=== PATIENT | female | born 1995 | race Caucasian/White ===

== ENCOUNTER → 2018-12-11 | Outpatient (CLI) | payer BC ==
--- NOTE | 2018-12-11 13:42 | REP ---
Clinical: IUD positioning . Technique: Transabdominal pelvic ultrasound followed by transvaginal examination for better evaluation of the endometrium and adnexa with color Doppler evaluation of the ovaries. Findings: Bladder is empty Anteverted uterus measures 7.2 x 2.4 x 4.0 cm with left posterior intramural fibroid measuring 1.3 cm maximal diameter . The endometrial complex measures 2.0 mm thickness. No discrete uterine or endometrial abnormalities are appreciated. IUD identified in satisfactory position. Bilateral ovaries are normal in appearance and vascularity without evidence for torsion. Right ovary measures 2.7 x 1.7 x 2.0 cm ; R I = 0.57 . Left ovary measures 3.5 x 1.8 x 2.7 cm ; R I = 0.51 . No pelvic fluid or adnexal mass lesion . Impression: 1. Left posterior intramural fibroid measures 1.3 cm maximal diameter. 2. IUD in satisfactory position. 3. Normal bilateral ovaries without torsion. Electronically Signed by Mike Garner MD 12/11/2018 01:33 P
== END ==
LOC: M RAD 10:17
PROVIDERS: ATTEND Physician Assistant
DX: Z30.431 Encounter for routine checking of intrauterine contraceptive device (principal); D25.9 Leiomyoma of uterus, unspecified

== ENCOUNTER → 2019-11-05 | Outpatient (REF) | payer BC ==
[2019-11-05 13:12] LABS: HEMATOCRIT 36.5 % (36.0-47.0); HEMOGLOBIN 12.3 g/dl (12.0-15.5); MEAN CORPUSCULAR HEMOGLOBIN 29.1 pg (27.0-33.0); MEAN CORPUSCULAR HGB CONC 33.7 g/dl (32.0-36.5); MEAN CORPUSCULAR VOLUME 86.5 fl (80.0-96.0); PLATELET COUNT, AUTOMATED 295 10^3/uL (150-450); RED BLOOD COUNT 4.22 10^6/uL (4.00-5.40); WHITE BLOOD COUNT 8.4 10^3/uL (4.0-10.0)
[2019-11-05 14:08] LABS: HCG, SERUM QUANTITATIVE 149340 MIU/ML; HEPATITIS B SURFACE ANTIGEN NEGATIVE (NEGATIVE); HEPATITIS C VIRUS ABY INDEX 0.1 INDEX (<0.8); HIV 1&2 SCREEN CENTAUR NEGATIVE (NEGATIVE); RUBELLA IgG QUALITATIVE IMMUNE (IMMUNE)
== END ==
LOC: M LAB REF 12:18
PROVIDERS: ATTEND Obstetrics & Gynecology
DX: Z32.01 Encounter for pregnancy test, result positive (principal)

== ENCOUNTER → 2020-01-21 | Outpatient (CLI) | payer BC ==
--- NOTE | 2020-01-21 11:32 | REP ---
OB ULTRASOUND: Real-time sonographic evaluation of the gravid uterus performed. There is a single living intrauterine gestation. The estimated gestational age is 23 weeks 0 days. EDC 06/09/2020. Today's measurements indicate appropriate growth. Biometry and Growth: BPD 47 mm = 20 weeks 0 days, 51st percentile HC 174 mm = 19 weeks 6 days, 47th percentile AC 148 mm = 20 weeks 1 day, 52nd percentile FL 33 mm = 20 weeks 2 days, 56th percentile HC/AC ratio 1.17 with in normal range 1.06 to 1.24. Estimated weight 334 grams 52nd percentile. SEEN/GROSSLY UNREMARKABLE Lateral ventricles Yes Posterior fossa Yes Upper lip Yes Four-chamber heart No LVOT No RVOT No Stomach Yes Cord insertion Yes Three vessel cord Yes Kidneys Yes Bladder Yes Spine Yes Cervical length: Closed and measures 3.9 cm in length. heart rate: 158 beats per minute. position: Variable Placenta: Posterior and grade 1 with no previa or abruption. Amniotic fluid: Within normal limits. There appears to be a posterior fibroid 1.5 cm in diameter.
== END ==
LOC: M WHC 08:45
PROVIDERS: ATTEND Obstetrics & Gynecology
DX: Z34.02 Encounter for supervision of normal first pregnancy, second trimester (principal); Z3A.23 23 weeks gestation of pregnancy

== ENCOUNTER → 2020-02-14 | Outpatient (CLI) | payer BC ==
--- NOTE | 2020-03-09 17:58 | REP ---
OBSTETRIC ULTRASOUND CLINICAL: Anatomical follow-up. COMPARISON: 01/21/2020. TECHNIQUE: Transabdominal obstetric ultrasound with color Doppler evaluation. FINDINGS: Ultrasound examination demonstrates a single live intrauterine in cephalic presentation. motion was identified by the technologist. heart rate equals 153 beats per minute. Placenta noted posteriorly, grade 0, and without placenta previa or abruption. Cervix measures 3.1 cm in length and appears closed. Gestational age by current biometrical measures 23 weeks 4 days with estimated date of delivery 06/08/2020. heart rate equals 153 beats per minute. Estimated weight 592 grams (41st percentile). Amniotic fluid volume is normal. Anatomical assessment demonstrates normal spine, stomach, kidney/bladder, heart/ventricular outflow tracts, three-vessel cord/cord insertion, and facial features. IMPRESSION: Single live intrauterine in cephalic presentation demonstrating appropriate estimated weight and growth. In conjunction with prior examination, anatomical assessment is complete and normal. [facility]
== END ==
LOC: M WHC 05:47
PROVIDERS: ATTEND Obstetrics & Gynecology
DX: Z34.02 Encounter for supervision of normal first pregnancy, second trimester (principal); Z3A.23 23 weeks gestation of pregnancy

== ENCOUNTER → 2020-04-13 | Outpatient (CLI) | payer BC ==
--- NOTE | 2020-04-18 11:46 | REP ---
OBSTETRIC SONOGRAPHY HISTORY: Supervision of for dating and growth. FINDINGS: Scanning through the gravid uterus demonstrates a single living intrauterine gestation in a cephalic lie. heart rate is recorded at 155 beats per minute. Posterior grade 1 placenta is seen without evidence of previa. Amniotic fluid index (JUSTINO) is normal at 11.8 cm. Closed cervical length is 3.5 cm. This is viewed and measured transabdominally. Appropriate interval growth. BIOMETRY CHART: BPD 8.0 cm 32 weeks 1 day Head circumference 29.3 cm 32 weeks 2 days Abdominal circumference 27.9 cm 32 weeks 0 days Femur length 6.3 cm 32 weeks 4 days Humeral length 5.6 cm 32 weeks 4 days AC/HC ratio 1.05 Normal Cephalic index 0.76 Normal Estimated weight 1925 grams, 4 pounds 3 ounces, 50th percentile for 31 weeks 6 days. IMPRESSION: Single living intrauterine gestation at 32 weeks 2 days by todays composite sonographic criteria. Estimated date of delivery (NANCI) by todays sonography 06/06/2020. MTDD
== END ==
LOC: M WHC 10:27
PROVIDERS: ATTEND Advanced Practice Midwife
DX: Z34.03 Encounter for supervision of normal first pregnancy, third trimester (principal)

== ENCOUNTER → 2020-05-10 | Outpatient (REF) | payer BC | LOC: M LAB REF 11:24 | PROVIDERS: ATTEND Advanced Practice Midwife | DX: Z34.83 Encounter for supervision of other normal pregnancy, third trimester (principal); Z36.85 Encounter for antenatal screening for Streptococcus B ==

== ENCOUNTER → 2020-07-20 | Outpatient (REF) | payer BC, MEDICAID ==
[2020-07-20 17:19] LABS: APPEARANCE, URINE CLOUDY (CLEAR); BACTERIA, URINE AUTO NEGATIVE (NEGATIVE); BILIRUBIN, URINE AUTO NEGATIVE (NEGATIVE); BLOOD, URINE BLOOD NEGATIVE (NEGATIVE); COLOR, URINE YELLOW (YELLOW); GLUCOSE, URINE (UA) AUTO NEGATIVE (NEGATIVE); KETONE, URINE AUTO NEGATIVE (NEGATIVE); LEUKOCYTE ESTERASE, URINE AUTO NEGATIVE (NEGATIVE); MUCUS, URINE SMALL (NEGATIVE); NITRITE, URINE AUTO NEGATIVE (NEGATIVE); PROTEIN, URINE AUTO NEGATIVE (NEGATIVE); RBC, URINE AUTO 0 /HPF (0-3); SPECIFIC GRAVITY URINE AUTO 1.023 (1.002-1.035); SQUAMOUS EPITHELIAL CELL UR AU 1 /HPF (0-6); UROBILINOGEN, URINE AUTO 0.2 mg/dL (0.0-2.0); WBC, URINE AUTO 1 /HPF (0-3)
[2020-07-20 17:19] LABS: BASO # 0.1 10^3/uL (0.0-0.2); BASO % 1.2 % (0.0-1.0); EOS # 0.4 10^3/uL (0.0-0.5); EOS % 6.1 % (0.0-3.0); HEMATOCRIT 40.8 % (36.0-47.0); LYMPH # 2.8 10^3/uL (1.5-5.0); LYMPH % 42.2 % (24.0-44.0); MEAN CORPUSCULAR HEMOGLOBIN 27.7 pg (27.0-33.0); MEAN CORPUSCULAR HGB CONC 31.9 g/dl (32.0-36.5); MONO # 0.4 10^3/uL (0.0-0.8); MONO % 6.3 % (0.0-5.0); NEUTROPHILS # 2.9 10^3/uL (1.5-8.5); NEUTROPHILS % 43.7 % (36.0-66.0); PLATELET COUNT, AUTOMATED 281 10^3/uL (150-450); RED BLOOD COUNT 4.69 10^6/uL (4.00-5.40); WHITE BLOOD COUNT 6.5 10^3/uL (4.0-10.0)
[2020-07-20 17:37] LABS: ALBUMIN 3.9 GM/DL (3.2-5.2); ALT/SGPT 23 U/L (12-78); BILIRUBIN,TOTAL 0.2 MG/DL (0.2-1.0); BLOOD UREA NITROGEN 14 MG/DL (7-18); CARBON DIOXIDE LEVEL 27 MEQ/L (21-32); CHLORIDE LEVEL 105 MEQ/L (98-107); CHOLESTEROL LEVEL 277 MG/DL (<200); CHOLESTEROL RISK RATIO 5.893 (<5); CREATININE FOR GFR 0.65 MG/DL (0.55-1.30); GLOMERULAR FILTRATION RATE > 60.0 (>60); GLUCOSE, FASTING 83 MG/DL (70-100); HDL CHOLESTEROL 47 MG/DL (>40); LDL CHOLESTEROL 198 MG/DL (<100); NON-HDL-C 230 MG/DL; POTASSIUM SERUM 4.5 MEQ/L (3.5-5.1); SODIUM LEVEL 138 MEQ/L (136-145); TOTAL PROTEIN 6.9 GM/DL (6.4-8.2); TRIGLYCERIDES LEVEL 158 MG/DL (<150)
[2020-07-20 19:32] LABS: HEMOGLOBIN A1c 5.1 %
== END ==
LOC: M LAB REF 15:59
PROVIDERS: ATTEND Physician Assistant
DX: Z86.32 Personal history of gestational diabetes (principal); O10.03 Pre-existing essential hypertension complicating the puerperium; Z13.228 Encounter for screening for other metabolic disorders; Z13.220 Encounter for screening for lipoid disorders

== ENCOUNTER → 2020-08-30 | Outpatient (REF) | payer BC, MEDICAID ==
[2020-08-30 18:49] LABS: APPEARANCE, URINE CLOUDY (CLEAR); BACTERIA, URINE AUTO 2+ (NEGATIVE); BILIRUBIN, URINE AUTO NEGATIVE (NEGATIVE); BLOOD, URINE BLOOD 2+ (NEGATIVE); COLOR, URINE AMBER (YELLOW); GLUCOSE, URINE (UA) AUTO NEGATIVE (NEGATIVE); KETONE, URINE AUTO NEGATIVE (NEGATIVE); LEUKOCYTE ESTERASE, URINE AUTO 2+ (NEGATIVE); MUCUS, URINE SMALL (NEGATIVE); NITRITE, URINE AUTO POSITIVE (NEGATIVE); PROTEIN, URINE AUTO 3+ mg/dL (NEGATIVE); RBC, URINE AUTO 55 /HPF (0-3); SPECIFIC GRAVITY URINE AUTO 1.013 (1.002-1.035); SQUAMOUS EPITHELIAL CELL UR AU 0 /HPF (0-6); UROBILINOGEN, URINE AUTO 0.2 mg/dL (0.0-2.0); WBC, URINE AUTO TNTC /HPF (0-3)
== END ==
LOC: M LAB REF 16:22
PROVIDERS: ATTEND Physician Assistant Medical
DX: R30.0 Dysuria (principal)

== ENCOUNTER → 2020-10-06 | Outpatient (REF) | payer BC, MEDICAID ==
[2020-10-06 16:12] LABS: BASO # 0.1 10^3/uL (0.0-0.2); BASO % 0.9 % (0.0-1.0); EOS # 0.4 10^3/uL (0.0-0.5); EOS % 3.6 % (0.0-3.0); HEMATOCRIT 38.2 % (36.0-47.0); HEMOGLOBIN 12.8 g/dl (12.0-15.5); LYMPH # 2.5 10^3/uL (1.5-5.0); LYMPH % 26.1 % (24.0-44.0); MEAN CORPUSCULAR HEMOGLOBIN 29.1 pg (27.0-33.0); MEAN CORPUSCULAR HGB CONC 33.5 g/dl (32.0-36.5); MEAN CORPUSCULAR VOLUME 86.8 fl (80.0-96.0); MONO # 0.8 10^3/uL (0.0-0.8); MONO % 8.5 % (2.0-8.0); NEUTROPHILS # 5.9 10^3/uL (1.5-8.5); NEUTROPHILS % 60.4 % (36.0-66.0); PLATELET COUNT, AUTOMATED 350 10^3/uL (150-450); WHITE BLOOD COUNT 9.7 10^3/uL (4.0-10.0)
[2020-10-06 16:24] LABS: ALBUMIN 4.1 GM/DL (3.2-5.2); ALT/SGPT 21 U/L (12-78); BILIRUBIN,TOTAL 0.2 MG/DL (0.2-1.0); BLOOD UREA NITROGEN 11 MG/DL (7-18); CALCIUM LEVEL 9.4 MG/DL (8.5-10.1); CARBON DIOXIDE LEVEL 26 MEQ/L (21-32); CHLORIDE LEVEL 106 MEQ/L (98-107); FREE T4 1.14 NG/DL (0.76-1.46); GLOMERULAR FILTRATION RATE > 60.0 (>60); GLUCOSE, FASTING 98 MG/DL (70-100); POTASSIUM SERUM 3.9 MEQ/L (3.5-5.1); SODIUM LEVEL 140 MEQ/L (136-145); TOTAL 25(OH) VITAMIN D 30.4 NG/ML (30.0-100.0); TOTAL PROTEIN 7.7 GM/DL (6.4-8.2)
== END ==
LOC: M LAB REF 15:37
PROVIDERS: ATTEND Physician Assistant
DX: F41.1 Generalized anxiety disorder (principal); E66.9 Obesity, unspecified; E78.5 Hyperlipidemia, unspecified

== ENCOUNTER → 2020-11-16 | Outpatient (CLI) | payer BC, MEDICAID ==
--- NOTE | 2020-11-17 09:17 | REP ---
INDICATION: SWELLING/MASS/LUMP OF NECK COMPARISON: None. TECHNIQUE: Artis scale and color evaluation of the thyroid gland using the linear high frequency transducer. FINDINGS: The thyroid gland is normal in contour, shape, size, and echogenicity. No nodule/mass or cystic abnormalities are appreciated. Right thyroid lobe measures 4.8 x 1.5 x 1.5 cm. Isthmus measures 2.9 mm in width. Left thyroid lobe measures 3.8 x 1.7 x 1.1 cm. IMPRESSION: Normal thyroid ultrasound. <Electronically signed by Mike Garner > 11/17/20 0913
== END ==
LOC: M RAD 14:10
PROVIDERS: ATTEND Physician Assistant
DX: R22.1 Localized swelling, mass and lump, neck (principal)

== ENCOUNTER → 2021-04-10 | Outpatient (REF) | payer BC, MEDICAID | LOC: M SFHCWAGY 17:57 | PROVIDERS: ATTEND Advanced Practice Midwife | DX: Z12.4 Encounter for screening for malignant neoplasm of cervix (principal) ==

== ENCOUNTER → 2022-03-07 | Outpatient (REF) | payer MEDICARE | LOC: M PLALAB 16:38 | PROVIDERS: ATTEND Advanced Practice Midwife | DX: Z53.9 Procedure and treatment not carried out, unspecified reason (principal) ==

== ENCOUNTER → 2022-03-07 | Outpatient (CLI) | payer MEDICARE, OTHER | LOC: M LAB 17:08 | PROVIDERS: ATTEND Advanced Practice Midwife | DX: O20.0 Threatened abortion (principal) ==

== ENCOUNTER → 2022-03-09 | Outpatient (CLI) | payer OTHER | LOC: M LAB 08:07 | PROVIDERS: ATTEND Advanced Practice Midwife | DX: O20.0 Threatened abortion (principal); Z3A.00 Weeks of gestation of pregnancy not specified ==

== ENCOUNTER → 2022-03-11 | Outpatient (CLI) | payer OTHER | LOC: M WHC 11:38 | PROVIDERS: ATTEND Advanced Practice Midwife | DX: O20.0 Threatened abortion (principal); Z3A.00 Weeks of gestation of pregnancy not specified ==

== ENCOUNTER → 2022-03-13 | Outpatient (CLI) | payer OTHER | LOC: M LAB 14:36 | PROVIDERS: ATTEND Advanced Practice Midwife | DX: O20.0 Threatened abortion (principal); Z3A.00 Weeks of gestation of pregnancy not specified ==

== ENCOUNTER → 2022-03-15 | Outpatient (CLI) | payer OTHER | LOC: M LAB 15:39 | PROVIDERS: ATTEND Advanced Practice Midwife | DX: O20.0 Threatened abortion (principal); Z3A.00 Weeks of gestation of pregnancy not specified ==

== ENCOUNTER → 2022-04-19 | Outpatient (CLI) | payer MEDICARE, OTHER ==
[2022-04-19 09:13] LABS: HEMATOCRIT 40.2 % (36.0-47.0); HEMOGLOBIN 13.2 g/dl (12.0-15.5); MEAN CORPUSCULAR HEMOGLOBIN 29.5 pg (27.0-33.0); MEAN CORPUSCULAR HGB CONC 32.8 g/dl (32.0-36.5); MEAN CORPUSCULAR VOLUME 89.7 fl (80.0-96.0); PLATELET COUNT, AUTOMATED 315 10^3/uL (150-450); RED BLOOD COUNT 4.48 10^6/uL (4.00-5.40); WHITE BLOOD COUNT 8.8 10^3/uL (4.0-10.0)
[2022-04-19 09:51] LABS: ALT/SGPT 17 U/L (12-78); BILIRUBIN,TOTAL 0.2 MG/DL (0.2-1.0); CREATININE FOR GFR 0.51 MG/DL (0.55-1.30); GLOMERULAR FILTRATION RATE > 60.0 (>60); GLUCOSE CHALLENGE TEST 1 HOUR 90 MG/DL (LESS THAN 140); LDH LACTATE DEHYDROGENASE 174 U/L (84-246); URIC ACID 2.3 MG/DL (2.6-6.0)
[2022-04-19 11:25] LABS: HIV 1&2 SCREEN CENTAUR NEGATIVE (NEGATIVE)
[2022-04-19 11:28] LABS: GC DNA AMPLIFICATION NEGATIVE (NEGATIVE)
[2022-04-19 13:37] LABS: HEPATITIS C VIRUS ABY INDEX < 0.0 INDEX (<0.8)
== END ==
LOC: M LAB 07:04
PROVIDERS: ATTEND Advanced Practice Midwife
DX: O09.291 Supervision of pregnancy with other poor reproductive or obstetric history, first trimester (principal); Z87.19 Personal history of other diseases of the digestive system; Z3A.00 Weeks of gestation of pregnancy not specified

== ENCOUNTER 2022-05-01 21:06 | Emergency (ER) | payer MEDICARE, OTHER ==
[~2022-05-01] VITALS: Ht 162.6 cm; Wt 69.8 kg
[2022-05-01 21:09] VITALS: BP 137/87
[2022-05-01] MEDS ORDERED: LEVOTAB10 (21:18)
[2022-05-01] MEDS ORDERED: MONT10TA97 (21:18)
== END 2022-05-01 23:33 | disposition left against medical advice (07) ==
LOC: M ED 21:06
DX: Z53.21 Procedure and treatment not carried out due to patient leaving prior to being seen by health care provider (principal)

== ENCOUNTER → 2022-05-31 | Outpatient (REF) | payer MEDICARE ==
[~2022-05-31] MED LIST: LEVOTAB10; MONT10TA97
[2022-05-31 15:04] LABS: CREATININE,RANDOM URINE 197.4 MG/DL; TOTAL PROTEIN,RANDOM URINE 24.5 MG/DL (0.0-14.0)
== END ==
LOC: M PLALAB 08:17
PROVIDERS: ATTEND Advanced Practice Midwife
DX: O09.292 Supervision of pregnancy with other poor reproductive or obstetric history, second trimester (principal)

== ENCOUNTER → 2022-06-21 | Outpatient (CLI) | payer MEDICARE, OTHER | LOC: M WHC 12:08 | PROVIDERS: ATTEND Advanced Practice Midwife | DX: O09.292 Supervision of pregnancy with other poor reproductive or obstetric history, second trimester (principal); Z87.19 Personal history of other diseases of the digestive system; Z3A.20 20 weeks gestation of pregnancy ==

== ENCOUNTER 2022-07-31 01:50 | Outpatient (CLI) | payer MEDICARE, OTHER ==
[~2022-07-31] VITALS: Ht 162.6 cm; Wt 76.3 kg
[2022-07-31 02:05] VITALS: BP 119/65
[2022-07-31] MEDS ORDERED: ECOT81TA5 PO (02:07)
[2022-07-31] MEDS ORDERED: PRENTAB9 PO (02:07)
[2022-07-31] MEDS ORDERED: LR 1,000 ML IV ONE (02:20)
[2022-07-31] MEDS ORDERED: PROMETHAZINE 25MG/ML 1ML VIAL IV ONE (02:20)
[2022-07-31 03:55] VITALS: BP 111/64
[2022-07-31] MEDS ORDERED: LR 1,000 ML IV SCH (04:30)
[2022-07-31] MEDS ORDERED: ONDA4TAB6 PO (04:54)
== END 2022-07-31 06:40 | disposition home or self-care (01) ==
LOC: M LDO 01:50
PROVIDERS: ATTEND Obstetrics & Gynecology
DX: O21.8 Other vomiting complicating pregnancy (principal); Z3A.25 25 weeks gestation of pregnancy
CPT/HCPCS: 59025; 81002; 96374; G0378; G0463; J2550

== ENCOUNTER → 2022-08-02 | Outpatient (CLI) | payer MEDICARE, OTHER ==
[~2022-08-02] MED LIST changes: +ECOT81TA5 PO; +ONDA4TAB6 PO; +PRENTAB9 PO
[2022-08-02 10:47] LABS: HEMATOCRIT 31.9 % (36.0-47.0); HEMOGLOBIN 10.6 g/dl (12.0-15.5); MEAN CORPUSCULAR HGB CONC 33.2 g/dl (32.0-36.5); MEAN CORPUSCULAR VOLUME 87.2 fl (80.0-96.0); PLATELET COUNT, AUTOMATED 283 10^3/uL (150-450); RED BLOOD COUNT 3.66 10^6/uL (4.00-5.40); WHITE BLOOD COUNT 5.7 10^3/uL (4.0-10.0)
[2022-08-02 12:57] LABS: GC DNA AMPLIFICATION NEGATIVE (NEGATIVE)
== END ==
LOC: M PLALAB 07:56
PROVIDERS: ATTEND Advanced Practice Midwife
DX: Z34.92 Encounter for supervision of normal pregnancy, unspecified, second trimester (principal)

== ENCOUNTER → 2022-08-15 | Outpatient (CLI) | payer OTHER | LOC: M LAB 08:14 | PROVIDERS: ATTEND Advanced Practice Midwife | DX: O99.810 Abnormal glucose complicating pregnancy (principal) ==

== ENCOUNTER → 2022-08-29 | Outpatient (REF) | payer MEDICARE | LOC: M PLALAB 09:27 | PROVIDERS: ATTEND Advanced Practice Midwife | DX: N93.0 Postcoital and contact bleeding (principal) ==

== ENCOUNTER → 2022-10-10 | Outpatient (REF) | payer OTHER | LOC: M SFHCWAGY 13:01 | PROVIDERS: ATTEND Advanced Practice Midwife | DX: O24.410 Gestational diabetes mellitus in pregnancy, diet controlled (principal) ==

== ENCOUNTER → 2022-10-10 | Outpatient (CLI) | payer OTHER | LOC: M WHC 11:25 | PROVIDERS: ATTEND Advanced Practice Midwife | DX: O24.410 Gestational diabetes mellitus in pregnancy, diet controlled (principal) ==

== ENCOUNTER 2022-10-17 19:11 | Inpatient (IN) | payer MEDICARE, OTHER ==
[~2022-10-17] VITALS: Ht 160 cm; Wt 86.0 kg
[2022-10-17 19:37] VITALS: BP 156/89
[2022-10-17] MEDS ORDERED: NS 1,000 ML IV ONE (19:50)
[2022-10-17] MEDS ORDERED: ACETAMINOPHEN 500 MG TAB PO ONE (19:50)
[2022-10-17 20:13] LABS: BASO % 0.2 % (0.0-1.0); EOS % 0.1 % (0.0-3.0); HEMATOCRIT 34.3 % (36.0-47.0); HEMOGLOBIN 11.4 g/dl (12.0-15.5); LYMPH # 0.5 10^3/uL (1.5-5.0); LYMPH % 2.9 % (24.0-44.0); MEAN CORPUSCULAR HEMOGLOBIN 27.3 pg (27.0-33.0); MEAN CORPUSCULAR HGB CONC 33.2 g/dl (32.0-36.5); MEAN CORPUSCULAR VOLUME 82.3 fl (80.0-96.0); MONO # 0.8 10^3/uL (0.0-0.8); MONO % 4.4 % (2.0-8.0); NEUTROPHILS % 91.8 % (36.0-66.0); PLATELET COUNT, AUTOMATED 170 10^3/uL (150-450); RED BLOOD COUNT 4.17 10^6/uL (4.00-5.40); WHITE BLOOD COUNT 17.4 10^3/uL (4.0-10.0)
[2022-10-17 20:18] VITALS: BP 129/68
[2022-10-17 20:39] LABS: ALBUMIN 2.5 G/DL (3.2-5.2); ALKALINE PHOSPHATASE 188 U/L (46-116); ALT/SGPT 13 U/L (7.0-40); AST/SGOT < 8 U/L (<34); BILIRUBIN,TOTAL 0.5 MG/DL (0.3-1.2); BLOOD UREA NITROGEN 9 MG/DL (9-23); CALCIUM LEVEL 7.7 MG/DL (8.5-10.1); CARBON DIOXIDE LEVEL 20 MMOL/L (20-31); CHLORIDE LEVEL 104 MMOL/L (98-107); CREATININE FOR GFR 0.57 MG/DL (0.55-1.30); GLOMERULAR FILTRATION RATE > 60.0 (>60); GLUCOSE, FASTING 88 MG/DL (60-100); POTASSIUM SERUM 3.7 MMOL/L (3.5-5.1); SODIUM LEVEL 135 MMOL/L (136-145); TOTAL PROTEIN 5.7 G/DL (5.7-8.2)
[2022-10-17 20:51] VITALS: BP 136/72
[2022-10-17] MEDS ORDERED: NS 1,000 ML IV SCH (21:10)
[2022-10-17 21:27] VITALS: BP 142/73
[2022-10-17 21:59] LABS: APPEARANCE, URINE CLOUDY (CLEAR); BACTERIA, URINE AUTO NEGATIVE (NEGATIVE); BILIRUBIN, URINE AUTO NEGATIVE (NEGATIVE); BLOOD, URINE BLOOD NEGATIVE (NEGATIVE); COLOR, URINE AMBER (YELLOW); GLUCOSE, URINE (UA) AUTO NEGATIVE (NEGATIVE); KETONE, URINE AUTO 2+ mg/dL (NEGATIVE); LEUKOCYTE ESTERASE, URINE AUTO 2+ (NEGATIVE); MUCUS, URINE SMALL (NEGATIVE); NITRITE, URINE AUTO NEGATIVE (NEGATIVE); PROTEIN, URINE AUTO 2+ mg/dL (NEGATIVE); RBC, URINE AUTO 2 /HPF (0-3); SPECIFIC GRAVITY URINE AUTO 1.028 (1.002-1.035); SQUAMOUS EPITHELIAL CELL UR AU 16 /HPF (0-6); UROBILINOGEN, URINE AUTO 0.2 mg/dL (0.0-2.0); WBC, URINE AUTO 54 /HPF (0-3)
[2022-10-17] MEDS ORDERED: CALCIUM CARBONATE 500 MG CHEW U/D PO ONE (22:00)
[2022-10-17 22:32] VITALS: BP 135/80
[2022-10-17] MEDS: cefTRIAXone SOD 1 GM in D5W MINI-BAG PLUS 50 ML IV SCH (23:02)
[2022-10-17 23:31] VITALS: BP 123/66
[2022-10-18] VITALS (12 sets, daily range): BP systolic 104–134; BP diastolic 57–78
[2022-10-18] MEDS: VANCOMYCIN HCL 1,000 MG, VIAL MATE ADAPTER 1 EACH in NS 250 ML IV SCH ×3 (00:11→15:52)
[2022-10-18] MEDS ORDERED: VANCOMYCIN HCL 1,000 MG, VIAL MATE ADAPTER 1 EACH in NS 250 ML IV ONE (01:00)
[2022-10-18] MEDS: ACETAMINOPHEN 500 MG TAB PO PRN ×4 (01:38→22:15)
[2022-10-18] MEDS: LR 1,000 ML IV SCH ×3 (01:41→18:19)
[2022-10-18] MEDS ORDERED: miSOPROStol 50MCG 1/2 TABLET XX ONE (06:40)
[2022-10-18 09:46] LABS: BLOOD UREA NITROGEN 7 MG/DL (9-23); CALCIUM LEVEL 7.4 MG/DL (8.5-10.1); CARBON DIOXIDE LEVEL 18 MMOL/L (20-31); CHLORIDE LEVEL 105 MMOL/L (98-107); CREATININE FOR GFR 0.57 MG/DL (0.55-1.30); GLOMERULAR FILTRATION RATE > 60.0 (>60); GLUCOSE, FASTING 76 MG/DL (60-100); POTASSIUM SERUM 3.7 MMOL/L (3.5-5.1); SODIUM LEVEL 135 MMOL/L (136-145)
[2022-10-18] MEDS ORDERED: MONT-5 PO (10:10)
[2022-10-18] MEDS ORDERED: TUMS500C PO (10:10)
[2022-10-18] MEDS ORDERED: ASPI81CH33 PO (10:10)
[2022-10-18] MEDS ORDERED: ACET-897 PO (10:10)
[2022-10-18] MEDS ORDERED: LEVOTAB10 PO (10:13)
[2022-10-18 15:34] LABS: BASO % 0.2 % (0.0-1.0); EOS % 0.1 % (0.0-3.0); HEMATOCRIT 31.2 % (36.0-47.0); HEMOGLOBIN 10.2 g/dl (12.0-15.5); LYMPH # 0.9 10^3/uL (1.5-5.0); LYMPH % 4.6 % (24.0-44.0); MEAN CORPUSCULAR HEMOGLOBIN 27.6 pg (27.0-33.0); MEAN CORPUSCULAR HGB CONC 32.7 g/dl (32.0-36.5); MEAN CORPUSCULAR VOLUME 84.6 fl (80.0-96.0); MONO # 0.5 10^3/uL (0.0-0.8); MONO % 2.9 % (2.0-8.0); NEUTROPHILS # 16.7 10^3/uL (1.5-8.5); NEUTROPHILS % 90.6 % (36.0-66.0); PLATELET COUNT, AUTOMATED 156 10^3/uL (150-450); RED BLOOD COUNT 3.69 10^6/uL (4.00-5.40); WHITE BLOOD COUNT 18.4 10^3/uL (4.0-10.0)
[2022-10-18] MEDS ORDERED: CALCIUM CARBONATE 500 MG CHEW U/D PO PRN (19:05)
[2022-10-18] MEDS: cefTRIAXone SOD 1 GM in D5W MINI-BAG PLUS 50 ML IV SCH (23:04)
[2022-10-19] VITALS (38 sets, daily range): BP systolic 107–194; BP diastolic 57–96
[2022-10-19] MEDS: VANCOMYCIN HCL 1,000 MG, VIAL MATE ADAPTER 1 EACH in NS 250 ML IV SCH ×3 (00:03→16:00)
[2022-10-19] MEDS: miSOPROStol 50MCG 1/2 TABLET PO SCH ×2 (09:09→13:24)
[2022-10-19] MEDS ORDERED: EPIDURAL/PCA KEYS XX PRN (15:55)
[2022-10-19] MEDS ORDERED: ePHEDrine SULFATE 25 MG/5 ML(5MG/ML) SYRINGE IVP PRN (15:55)
[2022-10-19] MEDS ORDERED: diphenhydrAMINE 50MG/ML VIAL IV PRN (15:55)
[2022-10-19] MEDS ORDERED: LR 500 ML IV PRN (15:55)
[2022-10-19] MEDS ORDERED: NALOXONE INJ 0.4MG/1ML VIAL IV PRN (15:55)
[2022-10-19] MEDS ORDERED: ONDANSETRON 4MG 2ML VIAL IV PRN ×2 (15:55→23:00)
[2022-10-19] MEDS: FENTANYL/ROPIVACAINE/NACL BAG 100 ML EPIDURAL SCH (16:36)
[2022-10-19] MEDS ORDERED: VANCOMYCIN HCL 750 MG, VIAL MATE ADAPTER 1 EACH in D5W 250 ML IV SCH (17:00)
[2022-10-19] MEDS ORDERED: OXYTOCIN DRIP 30 UNITS in IV 1 EA IV SCH ×2 (18:00→23:00)
[2022-10-19] MEDS ORDERED: VANCOMYCIN HCL 500 MG in D5W MINI-BAG PLUS 100 ML IV SCH (18:00)
[2022-10-19] MEDS ORDERED: VANCOMYCIN HCL 500 MG in D5W MINI-BAG PLUS 100 ML IV ONE (18:30)
[2022-10-19] MEDS ORDERED: DIBUCAINE 1% OINTMENT 30GM TOP PRN (23:00)
[2022-10-19] MEDS ORDERED: RHOGAM 300MCG (1500IU) INJ IM SCH (23:00)
[2022-10-19] MEDS ORDERED: IBUPROFEN 600MG TAB PO PRN (23:00)
[2022-10-19] MEDS: LR 1,000 ML IV SCH (23:00)
[2022-10-19] MEDS ORDERED: DOCUSATE SODIUM 100MG CAPSULE PO PRN (23:00)
[2022-10-19] MEDS ORDERED: ACETAMINOPHEN TAB 650MG DOSE (2X325MG) PO PRN (23:00)
[2022-10-19] MEDS ORDERED: IBUPROFEN 800 MG TAB PO PRN (23:00)
[2022-10-20] MEDS: AMOXICILLIN 875 MG TAB PO SCH ×3 (00:56→20:20)
[2022-10-20] MEDS ORDERED: VANCOMYCIN HCL 750 MG, VIAL MATE ADAPTER 1 EACH in D5W 250 ML IV SCH (01:00)
[2022-10-20 01:30] VITALS: BP 153/85
[2022-10-20 01:45] VITALS: BP 146/87
[2022-10-20] MEDS: FENTANYL/ROPIVACAINE/NACL BAG 100 ML EPIDURAL SCH ×2 (01:55→11:55)
[2022-10-20] MEDS ORDERED: VANCOMYCIN HCL 500 MG in D5W MINI-BAG PLUS 100 ML IV SCH (02:00)
[2022-10-20 06:00] VITALS: BP 104/55
[2022-10-20] MEDS: LR 1,000 ML IV SCH ×2 (07:00→15:00)
[2022-10-20 07:50] LABS: HEMATOCRIT 29.9 % (36.0-47.0); HEMOGLOBIN 9.7 g/dl (12.0-15.5); MEAN CORPUSCULAR HEMOGLOBIN 27.1 pg (27.0-33.0); MEAN CORPUSCULAR HGB CONC 32.4 g/dl (32.0-36.5); MEAN CORPUSCULAR VOLUME 83.5 fl (80.0-96.0); PLATELET COUNT, AUTOMATED 167 10^3/uL (150-450); RED BLOOD COUNT 3.58 10^6/uL (4.00-5.40); WHITE BLOOD COUNT 9.1 10^3/uL (4.0-10.0)
[2022-10-20 08:09] LABS: BLOOD UREA NITROGEN 6 MG/DL (9-23); CALCIUM LEVEL 7.8 MG/DL (8.5-10.1); CARBON DIOXIDE LEVEL 22 MMOL/L (20-31); CHLORIDE LEVEL 108 MMOL/L (98-107); CREATININE FOR GFR 0.65 MG/DL (0.55-1.30); GLOMERULAR FILTRATION RATE > 60.0 (>60); GLUCOSE, FASTING 73 MG/DL (60-100); POTASSIUM SERUM 3.6 MMOL/L (3.5-5.1); SODIUM LEVEL 138 MMOL/L (136-145)
[2022-10-20] MEDS: PRENATAL VITAMINS CHEWABLE TABLET PO SCH (09:16)
[2022-10-20] MEDS ORDERED: AMOX875T PO (11:10)
[2022-10-20 19:00] VITALS: BP 134/80
[2022-10-20] MEDS: ACETAMINOPHEN 500 MG TAB PO PRN (20:20)
[2022-10-21 06:00] VITALS: BP 135/79
[2022-10-21] MEDS: ACETAMINOPHEN 500 MG TAB PO PRN ×2 (07:29→13:15)
[2022-10-21] MEDS ORDERED: MEASLES,MUMPS,RUBELLA VACCINE INJ (MMR-II) SC.IMMUN ONE (09:00)
[2022-10-21] MEDS: PRENATAL VITAMINS CHEWABLE TABLET PO SCH (09:38)
[2022-10-21] MEDS: AMOXICILLIN 875 MG TAB PO SCH (09:38)
== END 2022-10-21 13:20 | disposition home or self-care (01) | DRG 806 ==
LOC: M LDO 19:11 → M LDI 21:44 → M OBS 10-20 01:29
PROVIDERS: ADMIT Obstetrics & Gynecology; ATTEND Obstetrics & Gynecology
PROC: 10E0XZZ Delivery of Products of Conception, External Approach (ICD-10-PCS; principal; 2022-10-19)
PROC: 3E033VJ Introduction of Other Hormone into Peripheral Vein, Percutaneous Approach (ICD-10-PCS; 2022-10-19)
PROC: 10907ZC Drainage of Amniotic Fluid, Therapeutic from Products of Conception, Via Natural or Artificial Opening (ICD-10-PCS; 2022-10-19)
DX: O98.82 Other maternal infectious and parasitic diseases complicating childbirth (principal); Z37.0 Single live birth; R78.81 Bacteremia; Z3A.36 36 weeks gestation of pregnancy; O24.420 Gestational diabetes mellitus in childbirth, diet controlled; O43.893 Other placental disorders, third trimester; B95.1 Streptococcus, group B, as the cause of diseases classified elsewhere

== ENCOUNTER → 2023-03-12 | Outpatient (REF) | payer OTHER, MEDICAID ==
[~2023-03-12] MED LIST changes: +ACET-897 PO; +AMOX875T PO; +ASPI81CH33 PO; +LEVOTAB10 PO; +MONT-5 PO; +TUMS500C PO
[2023-03-12 19:54] LABS: GC DNA AMPLIFICATION NEGATIVE (NEGATIVE)
== END ==
LOC: M SFHCWAGY 17:18
PROVIDERS: ATTEND Obstetrics & Gynecology
DX: Z12.4 Encounter for screening for malignant neoplasm of cervix (principal); Z11.3 Encounter for screening for infections with a predominantly sexual mode of transmission
CPT/HCPCS: 87661; 87810; 87850; G0123

== ENCOUNTER → 2023-05-27 | Outpatient (REF) | payer OTHER ==
[2023-05-27 13:39] LABS: APPEARANCE, URINE CLEAR (CLEAR); BACTERIA, URINE AUTO NEGATIVE (NEGATIVE); BILIRUBIN, URINE AUTO NEGATIVE (NEGATIVE); BLOOD, URINE BLOOD 1+ (NEGATIVE); COLOR, URINE STRAW (YELLOW); GLUCOSE, URINE (UA) AUTO NEGATIVE (NEGATIVE); KETONE, URINE AUTO NEGATIVE (NEGATIVE); LEUKOCYTE ESTERASE, URINE AUTO TRACE (NEGATIVE); NITRITE, URINE AUTO NEGATIVE (NEGATIVE); PROTEIN, URINE AUTO NEGATIVE (NEGATIVE); RBC, URINE AUTO 6 /HPF (0-3); SPECIFIC GRAVITY URINE AUTO 1.014 (1.002-1.035); SQUAMOUS EPITHELIAL CELL UR AU 0 /HPF (0-6); UROBILINOGEN, URINE AUTO 0.2 mg/dL (0.0-2.0); WBC, URINE AUTO 6 /HPF (0-3)
== END ==
LOC: M LAB REF 12:44
PROVIDERS: ATTEND Physician Assistant Medical
DX: N39.0 Urinary tract infection, site not specified (principal)

== ENCOUNTER → 2023-09-26 | Outpatient (REF) | payer OTHER, MEDICAID | LOC: M SFHCWAGY 10:09 | PROVIDERS: ATTEND Obstetrics & Gynecology | DX: R10.2 Pelvic and perineal pain (principal) ==

== ENCOUNTER → 2023-12-19 | Outpatient (REF) | payer OTHER, MEDICAID ==
[~2023-12-19] MED LIST changes: +ONDA-282 PO; -ONDA4TAB6 PO
[2023-12-19 21:15] LABS: Trichomonas vaginalis (AMP) NOT DETECTED (NEGATIVE)
[2023-12-19 21:39] LABS: GC DNA AMPLIFICATION NEGATIVE (NEGATIVE)
== END ==
LOC: M SFHCWAGY 16:56
PROVIDERS: ATTEND Obstetrics & Gynecology
DX: Z11.3 Encounter for screening for infections with a predominantly sexual mode of transmission (principal)

== ENCOUNTER → 2024-08-23 | Outpatient (REF) | payer OTHER ==
[2024-08-23 18:05] LABS: Trichomonas vaginalis (AMP) NOT DETECTED (NEGATIVE)
[2024-08-23 18:29] LABS: GC DNA AMPLIFICATION NEGATIVE (NEGATIVE)
== END ==
LOC: M LAB REF 16:13
PROVIDERS: ATTEND Physician Assistant
DX: Z11.3 Encounter for screening for infections with a predominantly sexual mode of transmission (principal)

== ENCOUNTER → 2024-08-24 | Outpatient (REF) | payer OTHER ==
[2024-08-24 13:50] LABS: CHOLESTEROL RISK RATIO 3.07 (<5); FREE T4 1.03 NG/DL (0.89-1.76); HDL CHOLESTEROL 60.4 MG/DL (>40); LDL CHOLESTEROL 110.8 MG/DL (<100); NON-HDL-C 125.6 MG/DL
[2024-08-24 13:51] LABS: THYROID STIMULATING HORMONE 1.484 uIU/ML (0.55-4.78)
== END ==
LOC: M LAB REF 12:15
PROVIDERS: ATTEND Physician Assistant
DX: F43.21 Adjustment disorder with depressed mood (principal); E78.5 Hyperlipidemia, unspecified

== ENCOUNTER → 2024-09-15 | Outpatient (REF) | payer OTHER ==
[2024-09-15 15:04] LABS: APPEARANCE, URINE HAZY (CLEAR); BACTERIA, URINE AUTO 1+ (NEGATIVE); BILIRUBIN, URINE AUTO NEGATIVE (NEGATIVE); BLOOD, URINE BLOOD 1+ (NEGATIVE); COLOR, URINE YELLOW (YELLOW); GLUCOSE, URINE (UA) AUTO NEGATIVE (NEGATIVE); KETONE, URINE AUTO NEGATIVE (NEGATIVE); LEUKOCYTE ESTERASE, URINE AUTO 2+ (NEGATIVE); MUCUS, URINE LARGE (NEGATIVE); NITRITE, URINE AUTO POSITIVE (NEGATIVE); PROTEIN, URINE AUTO 1+ mg/dL (NEGATIVE); RBC, URINE AUTO 9 /HPF (0-3); SPECIFIC GRAVITY URINE AUTO 1.023 (1.002-1.035); SQUAMOUS EPITHELIAL CELL UR AU 5 /HPF (0-6); UROBILINOGEN, URINE AUTO 0.2 mg/dL (0.0-2.0); WBC, URINE AUTO 43 /HPF (0-3)
[2024-09-15 15:57] LABS: Trichomonas vaginalis (AMP) NOT DETECTED (NEGATIVE)
[2024-09-15 16:20] LABS: GC DNA AMPLIFICATION NEGATIVE (NEGATIVE)
== END ==
LOC: M LAB REF 14:33
PROVIDERS: ATTEND Physician Assistant
DX: N39.0 Urinary tract infection, site not specified (principal); Z20.2 Contact with and (suspected) exposure to infections with a predominantly sexual mode of transmission

== ENCOUNTER → 2024-09-23 | Outpatient (REF) | payer MEDICAID, OTHER ==
[2024-09-23 19:21] LABS: GC DNA AMPLIFICATION NEGATIVE (NEGATIVE)
[2024-09-24 12:23] LABS: Trichomonas vaginalis (AMP) NOT DETECTED (NEGATIVE)
== END ==
LOC: M SFHCWAGY 15:17
PROVIDERS: ATTEND Obstetrics & Gynecology
DX: Z12.4 Encounter for screening for malignant neoplasm of cervix (principal)

== ENCOUNTER → 2024-11-30 | Outpatient (REF) | payer OTHER ==
[2024-11-30 20:28] LABS: GC DNA AMPLIFICATION NEGATIVE (NEGATIVE)
[2024-12-02 16:02] LABS: Trichomonas vaginalis (AMP) NOT DETECTED (NEGATIVE)
== END ==
LOC: M LAB REF 17:15
PROVIDERS: ATTEND Physician Assistant
DX: R30.0 Dysuria (principal); Z11.3 Encounter for screening for infections with a predominantly sexual mode of transmission

== ENCOUNTER 2025-04-03 06:38 | Emergency (ER) | payer OTHER ==
[~2025-04-03] VITALS: Ht 162.6 cm; Wt 38.1 kg
[2025-04-03] MEDS: ONDANSETRON 4MG 2ML VIAL IV ONE (07:30)
[2025-04-03] MEDS: PANTOPRAZOLE 40MG VIAL IV ONE (07:30)
[2025-04-03] MEDS: NS (Normal Saline) 0.9% 1,000 ML IV ONE (07:31)
[2025-04-03 07:32] LABS: BASO # 0.1 10^3/uL (0.0-0.2); BASO % 0.9 % (0.0-1.0); EOS # 0.2 10^3/uL (0.0-0.5); EOS % 1.6 % (0.0-3.0); LYMPH # 1.8 10^3/uL (1.5-5.0); LYMPH % 17.7 % (24.0-44.0); MONO # 0.5 10^3/uL (0.0-0.8); MONO % 4.4 % (2.0-8.0); NEUTROPHILS # 7.6 10^3/uL (1.5-8.5); NEUTROPHILS % 75.0 % (36.0-66.0); PLATELET COUNT, AUTOMATED 362 10^3/uL (150-450)
[2025-04-03] MEDS ORDERED: BUPR150T12 PO (07:37)
[2025-04-03] MEDS ORDERED: ALTA1TAB3 PO (07:37)
[2025-04-03] MEDS ORDERED: MONT10TA97 PO (07:37)
[2025-04-03] MEDS ORDERED: HOME MED LIST COMPLETE! XX SCH (07:40)
[2025-04-03 08:02] LABS: ETHYL ALCOHOL (ETHANOL) 0.038 % (0.000-0.010)
[2025-04-03 08:04] LABS: ALT/SGPT 17 U/L (7.0-40); AST/SGOT 19 U/L (<34); CALCIUM LEVEL 8.9 MG/DL (8.5-10.1); CARBON DIOXIDE LEVEL 25 MMOL/L (20-31); CHLORIDE LEVEL 106 MMOL/L (98-107); CREATININE FOR GFR 0.68 MG/DL (0.55-1.30); GLOMERULAR FILTRATION RATE > 90.0 (>60); POTASSIUM SERUM 3.9 MMOL/L (3.5-5.1); SODIUM LEVEL 139 MMOL/L (136-145)
[2025-04-03 08:07] LABS: HCG, SERUM QUALITATIVE NEGATIVE (NEGATIVE)
[2025-04-03] MEDS ORDERED: ONDA-282 PO (08:42)
[2025-04-03 08:44] VITALS: BP 125/71; TEMP 97.4; O2SAT 100
== END 2025-04-03 08:57 | disposition home or self-care (01) ==
LOC: M ED 07:21
DX: R11.2 Nausea with vomiting, unspecified (principal); F10.120 Alcohol abuse with intoxication, uncomplicated; T51.0X1A Toxic effect of ethanol, accidental (unintentional), initial encounter; Z91.09 Other allergy status, other than to drugs and biological substances; Z79.899 Other long term (current) drug therapy
CPT/HCPCS: 80048; 80076; 82077; 83690; 84703; 85025; 96361; 96374; 99284; J2405; J2470